=== PATIENT | female | born 1935 ===

== ENCOUNTER 2018-02-03 09:00 | Outpatient (CLI) | payer OTHER | END 2018-02-03 09:03 | disposition home or self-care (01) | LOC: SONOGRAMA 09:00 | DX: E04.2 Nontoxic multinodular goiter (principal) ==

== ENCOUNTER 2020-06-13 08:02 | Outpatient (CLI) | payer OTHER | END 2020-06-13 08:06 | disposition home or self-care (01) | LOC: SONOGRAMA 08:02 | PROVIDERS: ATTEND Pathology Anatomic Pathology & Clinical Pathology | DX: D34 Benign neoplasm of thyroid gland (principal); E04.1 Nontoxic single thyroid nodule; E04.8 Other specified nontoxic goiter ==